=== PATIENT | female | born 1950 | race Caucasian/White ===

== ENCOUNTER → 2020-09-21 | Outpatient (CLI) | payer MEDICARE ==
--- NOTE | 2020-09-21 10:54 | REP ---
INDICATION: PAIN IN RIGHT LOWER LEG COMPARISON: None. TECHNIQUE: AP and lateral views of the right tibia/fibula. FINDINGS: The osseous structures and joint spaces are intact and normal. There is no evidence for acute fracture or dislocation. Surrounding soft tissues are unremarkable. No subcutaneous emphysema or radiodense foreign body. IMPRESSION: Normal examination.. No acute fracture or dislocation. <Electronically signed by Rudy Merino > 09/21/20 [id number]
== END ==
LOC: M RAD 10:23
PROVIDERS: ATTEND Physician Assistant
DX: M79.661 Pain in right lower leg (principal)